=== PATIENT | female | born 1955 | race Caucasian/White ===

== ENCOUNTER → 2016-02-27 | Outpatient (CLI) | payer BC | LOC: RAD 12:31 | DX: J01.00 Acute maxillary sinusitis, unspecified (principal) ==

== ENCOUNTER → 2016-07-13 | Outpatient (CLI) | payer BC ==
[~2016-07-13] VITALS: Ht 165.1 cm; Wt 11.8 kg
[2016-07-13 10:05] VITALS: BP 136/72
== END ==
LOC: AMSURD 10:01
DX: Z01.818 Encounter for other preprocedural examination (principal); M17.0 Bilateral primary osteoarthritis of knee

== ENCOUNTER → 2016-12-29 | Outpatient (CLI) | payer BC ==
[~2016-12-29] VITALS: Ht 165.1 cm; Wt 89.1 kg
[2016-12-29 08:00] VITALS: BP 133/71
== END ==
LOC: RAD 07:01 → AMSURD 07:01
DX: Z01.818 Encounter for other preprocedural examination (principal)

== ENCOUNTER 2017-09-13 14:31 | Inpatient (IN) | payer BC ==
[~2017-09-13] VITALS: Ht 170.2 cm; Wt 95.7 kg
[2017-09-13] MEDS ORDERED: MACROBID 1100 MG/CAP PO (14:50)
[2017-09-13] MEDS ORDERED: LISINOPRIL20 MG PO (14:50)
[2017-09-13] MEDS ORDERED: ZOLPIDEM TART10 MG PO (14:50)
[2017-09-13] MEDS ORDERED: PROPRANOLOL HCL60 M3 PO (14:50)
[2017-09-13] MEDS ORDERED: SENNA8.6 M1 PO (14:51)
[2017-09-13] MEDS ORDERED: FOLIC ACID0.8 M1 PO (14:51)
[2017-09-13] MEDS ORDERED: CITRACAL + D M1 EACH PO (14:51)
[2017-09-13] MEDS ORDERED: NORCO 325 MG-7.1 TA1 PO (14:51)
[2017-09-13] MEDS ORDERED: PRIMIDONE1 GM MC (14:52)
[2017-09-13] MEDS ORDERED: MYSOLINE50 M1 PO (14:52)
[2017-09-13 15:09] LABS: HEMATOCRIT 38.7 % (37.0-47.0); HEMOGLOBIN 12.6 g/dL (12.5-16.0); MEAN CELL VOLUME 94 fl (78-100); MEAN CORPUSCULAR HEMOGLOBIN 31 pg (27-31); MEAN CORPUSCULAR HGB CONC 33 g/dL (33-37); MEAN PLATELET VOLUME 11.5 fl (7.4-10.4); PLATELET COUNT 170 K/mm3 (130-400); RED BLOOD COUNT 4.13 M/mm3 (4.10-5.30); RED CELL DISTRIBUTION WIDTH 12.1 % (11.5-14.5); WHITE BLOOD COUNT 9.7 K/mm3 (4.8-10.8)
[2017-09-13 15:20] LABS: BUN/CREATININE RATIO 20.4 (6.0-26.0); CALCIUM 8.9 mg/dL (8.4-10.2); POTASSIUM 3.8 mmol/L (3.6-5.0); TOTAL BILIRUBIN 0.8 mg/dL (0.2-1.3); TOTAL PROTEIN 7.8 g/dL (6.3-8.2)
[2017-09-13 15:24] LABS: LYMPHOCYTE 3 % (20-51); MONOCYTE 3 % (3-10); NEUTROPHILS 94 % (42-75)
[2017-09-13 16:09] LABS: URINE APPEARANCE CLEAR; URINE COLOR YELLOW
[2017-09-13 16:10] LABS: URINE BILIRUBIN NEGATIVE (NEGATIVE); URINE BLOOD 250 ery/uL (NEGATIVE); URINE GLUCOSE NEGATIVE (NEGATIVE); URINE KETONE NEGATIVE (NEGATIVE); URINE NITRATE POSITIVE (NEGATIVE); URINE PROTEIN(semi-quant) 2+ mg/dL (NEGATIVE); URINE UROBILINOGEN NORMAL (NORMAL)
[2017-09-13 16:12] LABS: URINE LEUKOCYTE ESTERASE TRACE (NEGATIVE)
[2017-09-13 17:17] VITALS: BP 122/55
[2017-09-13 17:56] VITALS: BP 122/55
[2017-09-13 22:08] VITALS: BP 117/64
[2017-09-14 03:00] VITALS: BP 126/69
[2017-09-14 06:01] LABS: HEMATOCRIT 32.4 % (37.0-47.0); HEMOGLOBIN 10.3 g/dL (12.5-16.0); MEAN CELL VOLUME 95 fl (78-100); MEAN CORPUSCULAR HEMOGLOBIN 30 pg (27-31); MEAN CORPUSCULAR HGB CONC 32 g/dL (33-37); MEAN PLATELET VOLUME 11.5 fl (7.4-10.4); PLATELET COUNT 147 K/mm3 (130-400); RED CELL DISTRIBUTION WIDTH 12.4 % (11.5-14.5); WHITE BLOOD COUNT 5.5 K/mm3 (4.8-10.8)
[2017-09-14 06:22] VITALS: BP 109/61
[2017-09-14 06:24] LABS: ALBUMIN 2.9 g/dL (3.5-5.0); BUN/CREATININE RATIO 17.1 (6.0-26.0); CALCIUM 7.9 mg/dL (8.4-10.2); POTASSIUM 3.6 mmol/L (3.6-5.0); TOTAL BILIRUBIN 0.4 mg/dL (0.2-1.3); TOTAL PROTEIN 5.8 g/dL (6.3-8.2)
[2017-09-14 06:33] LABS: LYMPHOCYTE 11 % (20-51); MONOCYTE 2 % (3-10); NEUTROPHILS 87 % (42-75)
[2017-09-14 11:09] VITALS: BP 99/63
[2017-09-14 15:08] VITALS: BP 111/71
[2017-09-14 18:20] VITALS: BP 150/78
[2017-09-14 22:48] VITALS: BP 137/68
[2017-09-15 03:15] VITALS: BP 143/86
[2017-09-15 06:34] VITALS: BP 147/71
[2017-09-15] MEDS ORDERED: CIPRO500 M1 PO (09:12)
== END 2017-09-15 09:50 | disposition home or self-care (01) | DRG 690 ==
LOC: ED 14:31 → MED/SURG 17:02
PROVIDERS: ADMIT Nurse Practitioner Primary Care
DX: N10 Acute pyelonephritis (principal); Z85.520 Personal history of malignant carcinoid tumor of kidney; I10 Essential (primary) hypertension; G25.0 Essential tremor
CPT/HCPCS: J0696; J1650; J2270; J2405; J7030; Q9967

== ENCOUNTER → 2018-11-07 | Outpatient (CLI) | payer MEDICARE, BC ==
[~2018-11-07] MED LIST: CIPRO500 M1 PO; CITRACAL + D M1 EACH PO; FOLIC ACID0.8 M1 PO; LISINOPRIL20 MG PO; MACROBID 1100 MG/CAP PO; MYSOLINE50 M1 PO; NORCO 325 MG-7.1 TA1 PO; PRIMIDONE1 GM MC; PROPRANOLOL HCL60 M3 PO; SENNA8.6 M1 PO; ZOLPIDEM TART10 MG PO
[2018-11-07 09:59] LABS: POTASSIUM 4.1 mmol/L (3.5-5.1)
[2018-11-07 10:00] LABS: CALCIUM 9.6 mg/dL (8.3-10.5)
[2018-11-07 10:01] LABS: EOS # 0.2 (0.04-0.40); EOS % 4.6 % (1.0-5.0); HEMATOCRIT 40.6 % (37.0-47.0); HEMOGLOBIN 13.1 g/dL (12.5-16.0); LYMPH# 1.2 (1.50-4.00); MEAN CELL VOLUME 95 fl (78-100); MEAN CORPUSCULAR HEMOGLOBIN 31 pg (27-31); MEAN CORPUSCULAR HGB CONC 32 g/dL (33-37); MEAN PLATELET VOLUME 11.4 fl (7.4-10.4); MONO # 0.3 (0.20-0.80); NEU # 2.6 (1.40-6.50); PLATELET COUNT 178 K/mm3 (130-400); RED BLOOD COUNT 4.26 M/mm3 (4.10-5.30); RED CELL DISTRIBUTION WIDTH 12.2 % (11.5-14.5); TOTAL PROTEIN 7.2 g/dL (6.2-8.1); WHITE BLOOD COUNT 4.4 K/mm3 (4.8-10.8)
[2018-11-07 10:03] LABS: TOTAL BILIRUBIN 0.4 mg/dL (0.2-1.2)
[2018-11-07 11:20] LABS: ERYTHROCYTE SEDIMENTATION RATE 30 mm/hr (0-30)
== END ==
LOC: LAB 09:26
PROVIDERS: Internal Medicine
DX: Z00.00 Encounter for general adult medical examination without abnormal findings (principal); Z12.11 Encounter for screening for malignant neoplasm of colon

== ENCOUNTER → 2018-12-19 | Outpatient (CLI) | payer MEDICARE, BC | LOC: MAMMO 11-21 09:03 | DX: Z00.00 Encounter for general adult medical examination without abnormal findings (principal); Z12.31 Encounter for screening mammogram for malignant neoplasm of breast ==

== ENCOUNTER 2019-01-17 16:21 | Emergency (ER) | payer MEDICARE, BC ==
[~2019-01-17] VITALS: Wt 104.7 kg
[~2019-01-17 16:21] MED LIST changes: +CITRACAL + BON1 EACH PO; -CITRACAL + D M1 EACH PO
[2019-01-17 16:56] LABS: URINE APPEARANCE HAZY; URINE BILIRUBIN NEGATIVE (NEGATIVE); URINE BLOOD TRACE (NEGATIVE); URINE COLOR LT YELLOW; URINE GLUCOSE NEGATIVE (NEGATIVE); URINE KETONE NEGATIVE (NEGATIVE); URINE LEUKOCYTE ESTERASE 1+ (NEGATIVE); URINE NITRATE NEGATIVE (NEGATIVE); URINE PROTEIN(semi-quant) TRACE mg/dL (NEGATIVE); URINE UROBILINOGEN NORMAL (NORMAL)
[2019-01-17 17:13] LABS: EOS # 0.2 (0.04-0.40); EOS % 2.4 % (1.0-5.0); HEMATOCRIT 39.4 % (37.0-47.0); HEMOGLOBIN 12.5 g/dL (12.5-16.0); LYMPH# 1.3 (1.50-4.00); MEAN CELL VOLUME 96 fl (78-100); MEAN CORPUSCULAR HEMOGLOBIN 30 pg (27-31); MEAN CORPUSCULAR HGB CONC 32 g/dL (33-37); MEAN PLATELET VOLUME 11.2 fl (7.4-10.4); MONO # 0.5 (0.20-0.80); PLATELET COUNT 199 K/mm3 (130-400); RED BLOOD COUNT 4.11 M/mm3 (4.10-5.30); RED CELL DISTRIBUTION WIDTH 12.4 % (11.5-14.5); WHITE BLOOD COUNT 7.1 K/mm3 (4.8-10.8)
[2019-01-17 17:29] LABS: ALBUMIN 3.9 g/dL (3.4-4.8); POTASSIUM 4.3 mmol/L (3.5-5.1)
[2019-01-17 17:30] LABS: CALCIUM 8.9 mg/dL (8.3-10.5)
[2019-01-17 17:32] LABS: TOTAL PROTEIN 6.6 g/dL (6.2-8.1)
[2019-01-17 17:33] LABS: TOTAL BILIRUBIN 0.4 mg/dL (0.2-1.2)
[2019-01-17 18:48] VITALS: BP 144/74
[2019-01-17] MEDS ORDERED: ZYRTEC10 M3 PO (19:09)
[2019-01-17] MEDS ORDERED: PROPRANOLOL ER80 MG PO (19:10)
[2019-01-17] MEDS ORDERED: MULTI VITAMINS1 TAB PO (19:11)
[2019-01-17] MEDS ORDERED: MASON NATURAL2000 IU PO (19:12)
[2019-01-17] MEDS ORDERED: VITAMIN C PURE500 M1 PO (19:12)
[2019-01-17] MEDS ORDERED: KLONOPIN 1MG1 MG PO (19:13)
[2019-01-17] MEDS ORDERED: TOPIRAMATE25 MG PO (19:14)
[2019-01-19] MEDS ORDERED: PROPRANOLOL HCL40 M2 PO (10:12)
== END 2019-01-17 19:20 | disposition other institution (70) ==
LOC: ED 16:21
PROVIDERS: Physician Assistant
DX: R55 Syncope and collapse (principal); E86.0 Dehydration; G25.0 Essential tremor; N17.8 Other acute kidney failure; I10 Essential (primary) hypertension; Z96.653 Presence of artificial knee joint, bilateral; Z90.5 Acquired absence of kidney
CPT/HCPCS: J7030

== ENCOUNTER → 2019-05-01 | Outpatient (CLI) | payer MEDICARE, BC ==
[2019-01-19 10:20] VITALS: BP 136/75
[~2019-05-01] MED LIST changes: +KLONOPIN 1MG1 MG PO; +MASON NATURAL2000 IU PO; +MULTI VITAMINS1 TAB PO; +PROPRANOLOL ER80 MG PO; +PROPRANOLOL HCL40 M2 PO; +TOPIRAMATE25 MG PO; +VITAMIN C PURE500 M1 PO; +ZYRTEC10 M3 PO
[2019-05-01 09:59] LABS: ALBUMIN 4.2 g/dL (3.4-4.8); POTASSIUM 4.1 mmol/L (3.5-5.1)
[2019-05-01 10:00] LABS: CALCIUM 9.7 mg/dL (8.3-10.5)
[2019-05-01 10:02] LABS: TOTAL PROTEIN 7.5 g/dL (6.2-8.1)
[2019-05-01 10:03] LABS: TOTAL BILIRUBIN 0.4 mg/dL (0.2-1.2)
[2019-05-01 12:18] LABS: EOS # 0.2 (0.04-0.40); EOS % 3.3 % (1.0-5.0); HEMATOCRIT 42.8 % (37.0-47.0); HEMOGLOBIN 13.4 g/dL (12.5-16.0); LYMPH# 1.2 (1.50-4.00); MEAN CELL VOLUME 98 fl (78-100); MEAN CORPUSCULAR HEMOGLOBIN 31 pg (27-31); MEAN CORPUSCULAR HGB CONC 31 g/dL (33-37); MONO # 0.4 (0.20-0.80); NEU # 2.9 (1.40-6.50); PLATELET COUNT 203 K/mm3 (130-400); RED BLOOD COUNT 4.39 M/mm3 (4.10-5.30); RED CELL DISTRIBUTION WIDTH 12.4 % (11.5-14.5); WHITE BLOOD COUNT 4.6 K/mm3 (4.8-10.8)
== END ==
LOC: LAB 09:10
PROVIDERS: Internal Medicine
DX: I10 Essential (primary) hypertension (principal); E78.2 Mixed hyperlipidemia; M85.89 Other specified disorders of bone density and structure, multiple sites

== ENCOUNTER → 2019-09-05 | Outpatient (CLI) | payer MEDICARE, BC ==
[2019-01-19 10:20] VITALS: BP 136/75
== END ==
LOC: LAB 07:46
DX: J98.9 Respiratory disorder, unspecified (principal); J02.9 Acute pharyngitis, unspecified; Z20.828 Contact with and (suspected) exposure to other viral communicable diseases

== ENCOUNTER → 2019-11-08 | Outpatient (CLI) | payer MEDICARE, BC ==
[2019-01-19 10:20] VITALS: BP 136/75
[2019-11-08 10:19] LABS: ALBUMIN 4.2 g/dL (3.4-4.8); POTASSIUM 4.3 mmol/L (3.5-5.1)
[2019-11-08 10:21] LABS: BASO # 0.1 (0.02-0.10); CALCIUM 9.4 mg/dL (8.3-10.5); EOS # 0.2 (0.04-0.40); EOS % 3.6 % (1.0-5.0); HEMATOCRIT 42.5 % (37.0-47.0); HEMOGLOBIN 13.5 g/dL (12.5-16.0); LYMPH# 1.2 (1.50-4.00); MEAN CELL VOLUME 95 fl (78-100); MEAN CORPUSCULAR HEMOGLOBIN 30 pg (27-31); MEAN CORPUSCULAR HGB CONC 32 g/dL (33-37); MEAN PLATELET VOLUME 11.3 fl (7.4-10.4); MONO # 0.3 (0.20-0.80); PLATELET COUNT 210 K/mm3 (130-400); RED BLOOD COUNT 4.46 M/mm3 (4.10-5.30); RED CELL DISTRIBUTION WIDTH 12.3 % (11.5-14.5)
[2019-11-08 10:22] LABS: TOTAL PROTEIN 7.6 g/dL (6.2-8.1)
[2019-11-08 10:24] LABS: TOTAL BILIRUBIN 0.4 mg/dL (0.2-1.2)
[2019-11-08 11:19] LABS: ERYTHROCYTE SEDIMENTATION RATE 23 mm/hr (0-30)
== END ==
LOC: LAB 09:48
PROVIDERS: Internal Medicine
DX: Z00.00 Encounter for general adult medical examination without abnormal findings (principal); Z12.11 Encounter for screening for malignant neoplasm of colon; M85.89 Other specified disorders of bone density and structure, multiple sites

== ENCOUNTER → 2019-11-30 | Outpatient (CLI) | payer MEDICARE, BC ==
[2019-01-19 10:20] VITALS: BP 136/75
== END ==
LOC: LAB 09:12
DX: Z00.00 Encounter for general adult medical examination without abnormal findings (principal); Z12.11 Encounter for screening for malignant neoplasm of colon; M85.89 Other specified disorders of bone density and structure, multiple sites

== ENCOUNTER → 2020-03-04 | Outpatient (CLI) | payer MEDICARE, BC ==
[2019-01-19 10:20] VITALS: BP 136/75
== END ==
LOC: LAB 12:12
DX: R05 Cough (principal); Z20.828 Contact with and (suspected) exposure to other viral communicable diseases

== ENCOUNTER → 2020-05-08 | Outpatient (CLI) | payer MEDICARE, BC ==
[2019-01-19 10:20] VITALS: BP 136/75
[2020-05-08 10:41] LABS: BASO # 0.1 (0.02-0.10); EOS # 0.2 (0.04-0.40); EOS % 2.9 % (1.0-5.0); HEMATOCRIT 39.3 % (37.0-47.0); HEMOGLOBIN 12.3 g/dL (12.5-16.0); LYMPH# 1.2 (1.50-4.00); MEAN CELL VOLUME 97 fl (78-100); MEAN CORPUSCULAR HEMOGLOBIN 30 pg (27-31); MEAN CORPUSCULAR HGB CONC 31 g/dL (33-37); MEAN PLATELET VOLUME 11.9 fl (7.4-10.4); MONO # 0.5 (0.20-0.80); NEU # 4.2 (1.40-6.50); PLATELET COUNT 210 K/mm3 (130-400); RED BLOOD COUNT 4.04 M/mm3 (4.10-5.30); RED CELL DISTRIBUTION WIDTH 12.8 % (11.5-14.5); WHITE BLOOD COUNT 6.1 K/mm3 (4.8-10.8)
[2020-05-08 10:54] LABS: POTASSIUM 4.5 mmol/L (3.5-5.1)
[2020-05-08 10:55] LABS: ALBUMIN 3.9 g/dL (3.4-4.8)
[2020-05-08 10:56] LABS: CALCIUM 9.3 mg/dL (8.3-10.5)
[2020-05-08 10:59] LABS: TOTAL BILIRUBIN 0.3 mg/dL (0.2-1.2)
[2020-05-08 11:23] LABS: ERYTHROCYTE SEDIMENTATION RATE 1 mm/hr (0-30)
== END ==
LOC: LAB 09:21
PROVIDERS: Internal Medicine
DX: N18.30 Chronic kidney disease, stage 3 unspecified (principal); E78.2 Mixed hyperlipidemia

== ENCOUNTER → 2020-11-06 | Outpatient (CLI) | payer MEDICARE, BC ==
[2020-11-06 10:39] LABS: BASO # 0.06 (0.02-0.10); EOS # 0.19 (0.04-0.40); EOS % 3.4 % (1.0-5.0); HEMATOCRIT 42.5 % (37.0-47.0); HEMOGLOBIN 13.3 g/dL (12.5-16.0); MEAN CELL VOLUME 98 fl (78-100); MEAN CORPUSCULAR HEMOGLOBIN 31 pg (27-31); MEAN CORPUSCULAR HGB CONC 31 g/dL (33-37); MEAN PLATELET VOLUME 11.1 fl (7.4-10.4); MONO # 0.41 (0.20-0.80); NEU # 3.75 (1.40-6.50); PLATELET COUNT 227 K/mm3 (130-400); RED BLOOD COUNT 4.36 M/mm3 (4.10-5.30); RED CELL DISTRIBUTION WIDTH 12.4 % (11.5-14.5); WHITE BLOOD COUNT 5.6 K/mm3 (4.8-10.8)
[2020-11-06 11:07] LABS: POTASSIUM 4.8 mmol/L (3.5-5.1)
[2020-11-06 11:09] LABS: CALCIUM 9.7 mg/dL (8.3-10.5)
[2020-11-06 11:10] LABS: TOTAL PROTEIN 7.7 g/dL (6.2-8.1)
[2020-11-06 11:12] LABS: TOTAL BILIRUBIN 0.4 mg/dL (0.2-1.2)
[2020-11-06 12:03] LABS: ERYTHROCYTE SEDIMENTATION RATE 32 mm/hr (0-30)
== END ==
LOC: LAB 10:09
PROVIDERS: Internal Medicine
DX: E78.2 Mixed hyperlipidemia (principal); I10 Essential (primary) hypertension; K90.9 Intestinal malabsorption, unspecified

== ENCOUNTER → 2020-11-17 | Outpatient (CLI) | payer MEDICARE, BC | LOC: LAB 13:32 | DX: Z20.822 Contact with and (suspected) exposure to COVID-19 (principal) ==

== ENCOUNTER → 2020-11-24 | Outpatient (CLI) | payer MEDICARE, BC ==
[2020-11-24 14:29] LABS: HEMATOCRIT 41.4 % (37.0-47.0); MEAN CELL VOLUME 97 fl (78-100); MEAN CORPUSCULAR HEMOGLOBIN 30 pg (27-31); MEAN CORPUSCULAR HGB CONC 31 g/dL (33-37); MEAN PLATELET VOLUME 11.2 fl (7.4-10.4); PLATELET COUNT 240 K/mm3 (130-400); RED BLOOD COUNT 4.28 M/mm3 (4.10-5.30); RED CELL DISTRIBUTION WIDTH 12.6 % (11.5-14.5)
[2020-11-24 14:30] LABS: ALBUMIN 3.7 g/dL (3.4-4.8); POTASSIUM 4.4 mmol/L (3.5-5.1)
[2020-11-24 14:31] LABS: CALCIUM 9.3 mg/dL (8.3-10.5)
[2020-11-24 14:33] LABS: TOTAL PROTEIN 6.9 g/dL (6.2-8.1)
[2020-11-24 14:35] LABS: TOTAL BILIRUBIN 0.3 mg/dL (0.2-1.2)
[2020-11-24 15:11] LABS: LYMPHOCYTE 10 % (20-51); MONOCYTE 3 % (3-10); NEUTROPHILS 87 % (42-75)
[2020-11-24 15:30] LABS: ERYTHROCYTE SEDIMENTATION RATE 27 mm/hr (0-30)
== END ==
LOC: RAD 14:01
PROVIDERS: Internal Medicine
DX: R06.00 Dyspnea, unspecified (principal)

== ENCOUNTER → 2020-12-02 | Outpatient (CLI) | payer MEDICARE, BC | LOC: MAMMO 11-18 13:45 → RAD 10:02 → MAMMO 10:45 | DX: M85.80 Other specified disorders of bone density and structure, unspecified site (principal) ==

== ENCOUNTER → 2020-12-02 | Outpatient (CLI) | payer MEDICARE, BC | LOC: MAMMO 11-18 13:00 | DX: Z12.31 Encounter for screening mammogram for malignant neoplasm of breast (principal) ==

== ENCOUNTER → 2021-05-21 | Outpatient (CLI) | payer MEDICARE, BC ==
[2021-05-21 11:32] LABS: BASO # 0.06 K/mm3 (0.02-0.10); EOS # 0.23 K/mm3 (0.04-0.40); EOS % 3.9 % (1.0-5.0); HEMATOCRIT 42.4 % (37.0-47.0); HEMOGLOBIN 13.3 g/dL (12.5-16.0); LYMPH# 1.37 K/mm3 (1.50-4.00); MEAN CELL VOLUME 96 fl (78-100); MEAN CORPUSCULAR HEMOGLOBIN 30 pg (27-31); MEAN CORPUSCULAR HGB CONC 31 g/dL (33-37); MEAN PLATELET VOLUME 11.5 fl (7.4-10.4); MONO # 0.45 K/mm3 (0.20-0.80); NEU # 3.77 K/mm3 (1.40-6.50); PLATELET COUNT 233 K/mm3 (130-400); RED BLOOD COUNT 4.44 M/mm3 (4.10-5.30); RED CELL DISTRIBUTION WIDTH 12.8 % (11.5-14.5); WHITE BLOOD COUNT 5.9 K/mm3 (4.8-10.8)
[2021-05-21 11:38] LABS: POTASSIUM 4.7 mmol/L (3.5-5.1)
[2021-05-21 11:40] LABS: CALCIUM 9.7 mg/dL (8.3-10.5)
[2021-05-21 11:41] LABS: TOTAL PROTEIN 7.2 g/dL (6.2-8.1)
[2021-05-21 11:43] LABS: TOTAL BILIRUBIN 0.4 mg/dL (0.2-1.2)
[2021-05-21 13:00] LABS: ERYTHROCYTE SEDIMENTATION RATE 45 mm/hr (0-30)
== END ==
LOC: LAB 10:51
PROVIDERS: Internal Medicine
DX: C64.9 Malignant neoplasm of unspecified kidney, except renal pelvis (principal); I12.9 Hypertensive chronic kidney disease with stage 1 through stage 4 chronic kidney disease, or unspecified chronic kidney disease; N18.30 Chronic kidney disease, stage 3 unspecified; E78.2 Mixed hyperlipidemia; K90.9 Intestinal malabsorption, unspecified

== ENCOUNTER → 2022-04-13 | Outpatient (CLI) | payer MEDICARE, BC | LOC: LAB 13:48 | DX: B34.9 Viral infection, unspecified (principal) ==

== ENCOUNTER → 2022-12-06 | Outpatient (CLI) | payer MEDICARE, BC ==
[~2022-12-06] MED LIST changes: +BENADRYL PO; +BENZONATATE100 M2 PO; +CRANBERRY500 M3 PO; -MASON NATURAL2000 IU PO; +VITAMIN D3125 MC1 PO
== END ==
LOC: RAD 09:52
DX: M47.818 Spondylosis without myelopathy or radiculopathy, sacral and sacrococcygeal region (principal)

== ENCOUNTER 2022-12-07 07:33 | Emergency (ER) | payer MEDICARE, BC ==
[~2022-12-07] VITALS: Wt 97.0 kg
[~2022-12-07 07:33] MED LIST changes: -BENADRYL PO; -BENZONATATE100 M2 PO; -CRANBERRY500 M3 PO
[2022-12-07 08:03] LABS: BASO # 0.04 K/mm3 (0.02-0.10); EOS % 2.7 % (1.0-5.0); HEMATOCRIT 41.2 % (37.0-47.0); HEMOGLOBIN 12.9 g/dL (12.5-16.0); LYMPH# 1.67 K/mm3 (1.50-4.00); MEAN CELL VOLUME 97 fl (78-100); MEAN CORPUSCULAR HEMOGLOBIN 30 pg (27-31); MEAN CORPUSCULAR HGB CONC 31 g/dL (33-37); MEAN PLATELET VOLUME 11.6 fl (7.4-10.4); MONO # 0.43 K/mm3 (0.20-0.80); NEU # 4.95 K/mm3 (1.40-6.50); PLATELET COUNT 235 K/mm3 (130-400); RED BLOOD COUNT 4.24 M/mm3 (4.10-5.30); RED CELL DISTRIBUTION WIDTH 11.9 % (11.5-14.5); WHITE BLOOD COUNT 7.3 K/mm3 (4.8-10.8)
[2022-12-07 08:11] LABS: ALBUMIN 3.8 g/dL (3.4-4.8)
[2022-12-07 08:12] LABS: SODIUM 141 mmol/L (136-145)
[2022-12-07 08:13] LABS: CALCIUM 9.2 mg/dL (8.3-10.5)
[2022-12-07 08:14] LABS: GLUCOSE 116 mg/dL (65-105); TOTAL PROTEIN 6.7 g/dL (6.2-8.1)
[2022-12-07 08:15] LABS: CARBON DIOXIDE 20 mmol/L (23-31)
[2022-12-07 08:16] LABS: TOTAL BILIRUBIN 0.4 mg/dL (0.2-1.2)
[2022-12-07 08:19] LABS: AST-SGOT 14 U/L (5-34)
[2022-12-07 08:20] LABS: ALT/SGPT 10 U/L (0-55)
[2022-12-07 08:37] LABS: TROPONIN-I < 0.030 ng/mL (<0.030)
[2022-12-07 08:49] LABS: URINE APPEARANCE CLEAR; URINE BILIRUBIN NEGATIVE (NEGATIVE); URINE COLOR YELLOW; URINE GLUCOSE 50 mg/dL (NEGATIVE); URINE KETONE NEGATIVE (NEGATIVE); URINE PROTEIN(semi-quant) 3+ (NEGATIVE); URINE UROBILINOGEN NORMAL (NORMAL)
[2022-12-07 08:50] LABS: URINE BLOOD 50 ery/uL (NEGATIVE); URINE LEUKOCYTE ESTERASE 1+ (NEGATIVE); URINE MUCUS PRESENT (NOT PRESENT); URINE NITRATE NEGATIVE (NEGATIVE)
[2022-12-07] MEDS ORDERED: CRANBERRY500 M3 PO (09:24)
[2022-12-07] MEDS ORDERED: BENADRYL PO (09:25)
[2022-12-07] MEDS ORDERED: BENZONATATE100 M2 PO (09:26)
[2022-12-07 12:36] VITALS: BP 142/74
== END 2022-12-07 12:45 | disposition home or self-care (01) ==
LOC: ED 07:33
PROVIDERS: Physician Assistant
DX: R55 Syncope and collapse (principal); R79.89 Other specified abnormal findings of blood chemistry
CPT/HCPCS: J7040

== ENCOUNTER → 2023-01-21 | Outpatient (CLI) | payer MEDICARE, BC ==
[~2023-01-21] MED LIST changes: +BENADRYL PO; +BENZONATATE100 M2 PO; +CRANBERRY500 M3 PO
== END ==
LOC: LAB 12:21
DX: N39.0 Urinary tract infection, site not specified (principal)

== ENCOUNTER → 2023-05-25 | Outpatient (CLI) | payer MEDICARE, BC ==
[~2023-05-25] MED LIST changes: +CEPHALEXIN500 M1 PO
== END ==
LOC: MAMMO 10:51
DX: Z12.31 Encounter for screening mammogram for malignant neoplasm of breast (principal); Z13.820 Encounter for screening for osteoporosis; M85.80 Other specified disorders of bone density and structure, unspecified site

== ENCOUNTER → 2023-07-28 | Outpatient (REF) | payer MEDICARE, BC | LOC: LAB 18:08 | DX: J06.9 Acute upper respiratory infection, unspecified (principal); Z20.822 Contact with and (suspected) exposure to COVID-19 ==